=== PATIENT | male | born 1960 | race Caucasian/White ===

== ENCOUNTER 2023-03-23 09:08 | Emergency (ER) | payer OTHER | END 2023-03-23 12:11 | disposition home or self-care (01) | LOC: JP.ED 09:08 | DX: T16.1XXA Foreign body in right ear, initial encounter (principal); K21.9 Gastro-esophageal reflux disease without esophagitis; Z79.899 Other long term (current) drug therapy; Z86.16 Personal history of COVID-19 | CPT/HCPCS: 99282 ==